=== PATIENT | male | born 1965 | race Caucasian/White ===

== ENCOUNTER 2019-12-06 20:05 | Emergency (ER) | payer BC, OTHER ==
[~2019-12-06] VITALS: Ht 162.6 cm; Wt 59.0 kg
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
--- NOTE | 2019-12-06 20:15 | NUR ---
EMT AT BEDSIDE FOR WOUND CARE.
[2019-12-06] MEDS ORDERED: TDAP [DIPH/PERTUSSIS/TET] 0.5 ML VIAL IM ONE ×2 (20:17→20:30)
[2019-12-06] MEDS ORDERED: BACITRACIN ZINC OINT PACKET 1 EA PACKET TP ONE ×2 (20:17→20:30)
--- NOTE | 2019-12-06 20:33 | NUR ---
PT ON 3L NASAL CANNULA. SAT 100%
[2019-12-06 21:01] LABS: ABG BASE EXCESS -1.4 mmol/L; ABG OXYGEN SATURATION 98.2 % (92.0-98.5); ABG PCO2 43.7 mmHg (35.0-45.0); ABG PO2 468.8 mmHg (75.0-100.0); AaDO2 200.5 mmHg; COHb 8.3 % (0.5-1.5); MetHb 0.3 % (0.0-1.5); O2Hb 89.8 % (94.0-97.0); SITE, ABG Right Radial; VENT MODE, BG 100% NRB 15L
--- NOTE | 2019-12-06 21:07 | NUR ---
PT SAT 96% ON ROOM AIR. VSS.
--- NOTE | 2019-12-06 21:44 | NUR ---
Patient discharged to home in stable condition. Written and verbal after care instructions given. Patient verbalizes understanding of instruction and RX. RR even and unlabored. Pt ambulated with steady gait.
[2019-12-06 21:48] VITALS: BP 112/74
== END 2019-12-06 21:51 | disposition home or self-care (01) ==
LOC: ER 20:07
DX: T23.202A Burn of second degree of left hand, unspecified site, initial encounter (principal); J70.5 Respiratory conditions due to smoke inhalation; E03.9 Hypothyroidism, unspecified; Z88.5 Allergy status to narcotic agent; Z60.2 Problems related to living alone; X08.8XXA Exposure to other specified smoke, fire and flames, initial encounter; Y93.89 Activity, other specified; Y92.89 Other specified places as the place of occurrence of the external cause; Y99.8 Other external cause status
CPT/HCPCS: 36600; 71045-TC; 90715